=== PATIENT | female | born 1955 | race Caucasian/White ===

== ENCOUNTER → 2024-03-17 | Outpatient (CLI) | payer MEDICARE ==
--- NOTE | 2024-03-17 16:46 | US ---
EXAMINATION TYPE: US gallbladder DATE OF EXAM: 03/17/2024 COMPARISON: NONE CLINICAL INDICATION: Female, 68 years old with history of R10.12 LUQ PAIN; generalized stomach pain a fter eating x a few months TECHNIQUE: Multiple sonographic images of the right upper quadrant are obtained. FINDINGS: Exam done intercostal due to excessive bowel gas EXAM MEASUREMENTS: Liver Length: 13.8 cm Gallbladder Wall: 0.22 cm CBD: 0.41 cm Right Kidney: 10.2 x 4.6 x 5.6 cm CREDENTIALER NOTES: Pancreas: Obscured by bowel gas Liver: Parts seen appear wnl Gallbladder: wnl Evidence for sonographic Abdi's sign: No CBD: wnl Right Kidney: Dilated renal pelvis, inf pole limited due to bowel gas The pancreas is obscured by overlying bowel gas. The visualized portions of liver are unremarkable wi thout focal lesion identified. Noncirrhotic morphology. Gallbladder is within normal limits without e vidence for stones, wall thickening, or surrounding fluid. Negative sonographic Abdi's sign. Common bile duct is within normal limits. Right kidney demonstrates no hydronephrosis. Prominent extrarenal pelvis. No solid masses identified. No visualized shadowing calculi. IMPRESSION: No ultrasound evidence for an acute process.
== END | disposition home or self-care (01) ==
LOC: RADUSWWP 08:08
PROVIDERS: ATTEND Surgery
DX: R10.12 Left upper quadrant pain (principal)
CPT/HCPCS: 76705

== ENCOUNTER 2024-03-27 13:20 | Day surgery (SDC) | payer MEDICARE ==
[2024-03-22 10:51] VITALS: BMI 22.8
[~2024-03-27 13:20] MED LIST: LIDOCAINE 1% (10MG/ML) FOR IV START INTRADERMA PRN
[2024-03-27] MEDS: IV FLUID CONTINUATION 1,000 ML IV ONE (14:04)
[2024-03-27 14:06] VITALS: TEMP 97.4
[2024-03-27] MEDS: LACTATED RINGERS 1,000 ML IV SCH (14:15)
[2024-03-27] MEDS: ONDANSETRON 4 MG/2 ML VIAL IVP STA (14:15)
[2024-03-27] MEDS ORDERED: PROPOFOL 10 MG/ML 20 ML VIAL IV ONE (15:14)
--- NOTE | 2024-03-27 15:24 | P.OP ---
Date of Procedure: 03/27/24 Preoperative Diagnosis: Gerd Postoperative Diagnosis: Hiatal hernia Esophagitis Procedure(s) Performed: EGD Anesthesia: MAC Surgeon: Charles Lambert Pathology: other (Esophagus) Condition: stable Disposition: PACU Description of Procedure: The patient was placed on the endoscopy table in the lateral position. She received IV sedation. The gas was placed oropharynx passed in the esophagus and stomach. Scope was then placed through the pylorus. The first and second portion duodenum appeared normal. Scope was then brought back into the stomach. Patient previous gastric sleeve. The stomach appeared normal. The GE junction was at 38 cm. The distal esophagus appeared mildly inflamed. A biopsy performed. There was a small hiatal hernia present. The proximal esophagus appeared normal. Scope withdrawn for the patient.
[2024-03-27 15:33] VITALS: RESP 16
[2024-03-27 15:43] VITALS: BP 128/74; PULSE 56
== END 2024-03-27 16:00 | disposition home or self-care (01) ==
LOC: ORWHC2ENDO 13:20
PROVIDERS: ATTEND Surgery
DX: K21.00 Gastro-esophageal reflux disease with esophagitis, without bleeding (principal); K44.9 Diaphragmatic hernia without obstruction or gangrene; I10 Essential (primary) hypertension; E78.5 Hyperlipidemia, unspecified; J45.909 Unspecified asthma, uncomplicated; M21.372 Foot drop, left foot; M19.90 Unspecified osteoarthritis, unspecified site; Z86.73 Personal history of transient ischemic attack (TIA), and cerebral infarction without residual deficits; Z79.02 Long term (current) use of antithrombotics/antiplatelets; Z79.51 Long term (current) use of inhaled steroids; Z79.899 Other long term (current) drug therapy
CPT/HCPCS: 88305; 43239; J2405; J2704